=== PATIENT | male | born 1980 | race African-American/Black ===

== ENCOUNTER 2019-06-10 13:55 | Emergency (ER) | payer MEDICAID ==
[~2019-06-10] VITALS: Ht 190.5 cm; Wt 85.0 kg
[2019-06-10 14:18] VITALS: BP 124/85
[2019-06-10] MEDS ORDERED: LIDOCAINE HCL 1% 20ML VIAL (Pyxis) INJ ONE (16:28)
[2019-06-10] MEDS ORDERED: AZITHROMYCIN 500 MG TABLET PO ONE (16:30)
[2019-06-10] MEDS ORDERED: CEFTRIAXONE SODIUM 250 MG/VIAL IM ONE (16:30)
[2019-06-13 06:14] LABS: CHLAMYDIA TRACHOMATIS NAA Negative (Negative); NEISSERIA GONORRHOEAE NAA Negative (Negative)
== END 2019-06-10 16:50 | disposition home or self-care (01) ==
LOC: ER 13:55
DX: N39.0 Urinary tract infection, site not specified (principal)
CPT/HCPCS: 87491; 87591; 96372; 99283; J0696; J3490

== ENCOUNTER 2019-06-14 03:45 | Emergency (ER) | payer MEDICAID ==
[~2019-06-14] VITALS: Ht 190.5 cm; Wt 82.0 kg
[2019-06-14 05:36] LABS: CLARITY URINE CLEAR (CLEAR); COLOR URINE YELLOW (YELLOW); KETONES URINE NEGATIVE (NEGATIVE); LEUKOCYTE ESTERASE URINE 2+ (NEGATIVE); NITRITE URINE NEGATIVE (NEGATIVE); OCCULT BLOOD URINE TRACE (NEGATIVE); PH URINE 6.5 (4.5-8.0); PROTEIN URINE NEGATIVE (NEGATIVE); SPECIFIC GRAVITY URINE 1.014 (1.005-1.030); UROBILINOGEN URINE 0.2 E.U./dL (0.2-1.0)
[2019-06-14 06:35] VITALS: BP 130/75
== END 2019-06-14 06:36 | disposition home or self-care (01) ==
LOC: ER 03:45
DX: N39.0 Urinary tract infection, site not specified (principal)
CPT/HCPCS: 99283

== ENCOUNTER 2019-08-04 19:25 | Emergency (ER) | payer MEDICAID ==
[~2019-08-04] VITALS: Ht 190.5 cm; Wt 82.0 kg
[2019-08-04 22:51] VITALS: BP 132/89
== END 2019-08-04 23:20 | disposition home or self-care (01) ==
LOC: ER 19:25
DX: R53.1 Weakness (principal); R42 Dizziness and giddiness; Z87.891 Personal history of nicotine dependence
CPT/HCPCS: 93005; 99283